=== PATIENT | male | born 1975 | race Caucasian/White ===

== ENCOUNTER 2019-04-06 04:26 | Emergency (ER) | payer OTHER ==
[~2019-04-06] VITALS: Ht 170.2 cm; Wt 90.3 kg
[2019-04-06 04:34] VITALS: Ht 170.2 cm; Wt 90.3 kg
[2019-04-06 04:57] VITALS: BP 125/77
== END 2019-04-06 04:57 | disposition home or self-care (01) ==
LOC: ED 04:26
DX: R19.7 Diarrhea, unspecified (principal)